=== PATIENT | female | born 1995 | race Caucasian/White ===

== ENCOUNTER 2020-12-09 16:49 | Emergency (ER) | payer BC, OTHER ==
[2020-12-09 17:32] LABS: HEMOGLOBIN 13.8 gm/dl (12.3-15.3); RED BLOOD COUNT 4.59 M/UL (4.00-5.10); WHITE BLOOD COUNT 7.5 K/UL (4.5-11.0)
== END 2020-12-09 19:58 | disposition home or self-care (01) ==
LOC: ER1 16:49
PROVIDERS: Emergency Medicine
DX: O03.4 Incomplete spontaneous abortion without complication (principal)
CPT/HCPCS: 76817; 84702; 85025; 86900; 86901; 99284

== ENCOUNTER → 2021-01-23 | Outpatient (CLI) | payer OTHER | LOC: LAB 18:03 | DX: Z32.00 Encounter for pregnancy test, result unknown (principal); Z32.01 Encounter for pregnancy test, result positive | CPT/HCPCS: 84702 ==

== ENCOUNTER → 2021-02-01 | Outpatient (CLI) | payer OTHER | LOC: LAB 12:28 | DX: Z34.90 Encounter for supervision of normal pregnancy, unspecified, unspecified trimester (principal); Z33.3 Pregnant state, gestational carrier | CPT/HCPCS: 84702; 84703 ==

== ENCOUNTER 2021-09-01 19:39 | Emergency (ER) | payer BC | END 2021-09-01 21:00 | disposition home or self-care (01) | LOC: ER1 19:39 | DX: U07.1 COVID-19 (principal) | CPT/HCPCS: 0240U; 99283 ==

== ENCOUNTER 2021-09-08 10:26 | Inpatient (IN) | payer BC ==
[~2021-09-08] VITALS: Ht 152.4 cm; Wt 87.1 kg
[2021-09-08 16:58] LABS: HEMOGLOBIN 10.9 gm/dl (12.3-15.3); RED BLOOD COUNT 3.93 M/UL (4.00-5.10); WHITE BLOOD COUNT 8.8 K/UL (4.5-11.0)
[2021-09-09] MEDS ORDERED: FERROUS SULFAT325 M2 PO (03:01)
[2021-09-09] MEDS ORDERED: PEPCID40 MG PO (03:01)
[2021-09-10] MEDS ORDERED: DOCUSATE SODIU250 MG PO (03:42)
[2021-09-10] MEDS ORDERED: IBUPROFEN600 MG PO (03:42)
[2021-09-11 04:28] LABS: HEMOGLOBIN 9.7 gm/dl (12.3-15.3)
== END 2021-09-11 16:07 | disposition home or self-care (01) | DRG 806 ==
LOC: EDSTATUS 10:26 → GENOP 16:31 → OB 16:31 → GENOP 16:46 → OB 09-10 08:08
PROVIDERS: Obstetrics & Gynecology; ADMIT Obstetrics & Gynecology
PROC: 8E0ZXY6 Isolation (ICD-10-PCS; 2021-09-08)
PROC: 10E0XZZ Delivery of Products of Conception, External Approach (ICD-10-PCS; principal; 2021-09-10)
PROC: 0KQM0ZZ Repair Perineum Muscle, Open Approach (ICD-10-PCS; 2021-09-10)
PROC: 10907ZC Drainage of Amniotic Fluid, Therapeutic from Products of Conception, Via Natural or Artificial Opening (ICD-10-PCS; 2021-09-10)
PROC: 3E033VJ Introduction of Other Hormone into Peripheral Vein, Percutaneous Approach (ICD-10-PCS; 2021-09-10)
PROC: 3E0234Z Introduction of Serum, Toxoid and Vaccine into Muscle, Percutaneous Approach (ICD-10-PCS; 2021-09-10)
DX: O34.219 Maternal care for unspecified type scar from previous cesarean delivery (principal); O99.12 Other diseases of the blood and blood-forming organs and certain disorders involving the immune mechanism complicating childbirth; Z37.0 Single live birth; O70.1 Second degree perineal laceration during delivery; D69.6 Thrombocytopenia, unspecified; Z3A.39 39 weeks gestation of pregnancy; Z23 Encounter for immunization
CPT/HCPCS: 36415; 81001; 85014; 85018; 85025; 90715; C9113; J0690; J2405; J2590; J2795; J7120